=== PATIENT | female | born 1990 | race Caucasian/White ===

== ENCOUNTER → 2016-06-08 | Outpatient (CLI) | payer OTHER ==
[~2016-06-08] MED LIST: ACET50TA PO; DOCU10CA PO; IBUP80TA PO; MOM30SS PO; VITAPRTA PO
--- NOTE | 2016-06-08 15:48 | REP ---
Clinical: Anatomical evaluation. Comparison: 04/21/2016 . Findings: Examination demonstrates a single live intrauterine in cephalic presentation. motion is identified by technologist. Placenta is noted posteriorly and grade one without evidence for placenta previa or abruption. Amniotic fluid volume is normal. Cervix measures 4.5 cm in length and appears closed. Nuchal cord noted. Gestational age by LMP 26 weeks 6 days with [facility] 09/08/2016 . Gestational age by current measurements 26 weeks 3 days with [facility] 09/11/2016 . FHR equals 147 beats per minute. Estimated weight 947 grams ( 33rd percentile). Anatomical assessment demonstrates normal structures including cranium, cavum, cerebellum/posterior fossa, lungs, four-chamber heart/ventricular outflow tracts, diaphragm, stomach, cord insertion/three-vessel cord, kidneys/bladder, and extremities. Impression: Single live intrauterine in cephalic presentation demonstrating appropriate interval growth. Nuchal cord. Anatomical assessment is complete and normal. Signed by Álvaro Jane MD 06/08/2016 03:39 P
== END ==
LOC: M LRY 14:17
PROVIDERS: ATTEND Nurse Practitioner Women's Health
DX: Z34.82 Encounter for supervision of other normal pregnancy, second trimester (principal)